=== PATIENT | male | born 1980 | race Caucasian/White ===

== ENCOUNTER 2020-04-09 15:55 | Emergency (ER) | payer OTHER ==
[~2020-04-09] VITALS: Ht 175.3 cm; Wt 86.2 kg
[2020-04-09 16:11] VITALS: BP_SYST 128
--- NOTE | 2020-04-09 16:11 | NUR ---
Placed in triage to be seen by MD.
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
--- NOTE | 2020-04-09 16:25 | NUR ---
ER at bedside examining patient.
[2020-04-09 16:30] VITALS: BP_SYST 128
--- NOTE | 2020-04-09 16:30 | NUR ---
Patient given written and verbal discharge instructions and verbalizes understanding. ER MD discussed with patient the results and treatment provided. Patient in stable condition. ID arm band removed. Rx not given. Patient educated on pain management and to follow up with PMD. Pain Scale 0/10. Opportunity for questions provided and answered. Medication side effect fact sheet provided.
[2020-04-11 08:07] LABS: HEPATITIS B CORE AB, TOTAL Negative (Negative); HEPATITIS B SURFACE AG Negative (Negative); HEPATITIS C VIRUS AB <0.1 s/co ratio (0.0-0.9)
== END 2020-04-09 16:30 | disposition home or self-care (01) ==
LOC: SED 15:55
DX: Z77.21 Contact with and (suspected) exposure to potentially hazardous body fluids (principal)
CPT/HCPCS: 36415; 86704; 86706; 86803; 87340; 99283

== ENCOUNTER 2020-08-19 15:42 | Outpatient (CLI) | payer OTHER ==
[2020-08-22 01:06] LABS: HEPATITIS B CORE AB, TOTAL Negative (Negative); HEPATITIS B SURFACE AG Negative (Negative); HEPATITIS C VIRUS AB <0.1 s/co ratio (0.0-0.9)
== END 2020-08-19 21:07 | disposition home or self-care (01) ==
LOC: SLB 15:42
PROVIDERS: ATTEND Internal Medicine Hospice and Palliative Medicine
DX: T14.90XA Injury, unspecified, initial encounter (principal); W46.0XXA Contact with hypodermic needle, initial encounter; Y93.89 Activity, other specified; Y92.89 Other specified places as the place of occurrence of the external cause; Y99.8 Other external cause status
CPT/HCPCS: 36415; 86704; 86706; 86803; 87340

== ENCOUNTER 2021-03-14 16:11 | Outpatient (CLI) | payer OTHER ==
[2021-03-16 06:06] LABS: HEPATITIS B CORE AB, TOTAL Negative (Negative); HEPATITIS B SURFACE AG Negative (Negative); HEPATITIS C VIRUS AB <0.1 s/co ratio (0.0-0.9)
== END 2021-03-14 20:25 | disposition home or self-care (01) ==
LOC: SLB 16:11
PROVIDERS: ATTEND Internal Medicine Hospice and Palliative Medicine
DX: T14.90XA Injury, unspecified, initial encounter (principal); W46.0XXA Contact with hypodermic needle, initial encounter; Y93.89 Activity, other specified; Y92.89 Other specified places as the place of occurrence of the external cause; Y99.8 Other external cause status
CPT/HCPCS: 36415; 86704; 86706; 86803; 87340